=== PATIENT | female | born 1945 | race Caucasian/White ===

== ENCOUNTER 2021-07-18 16:34 | Emergency (ER) | payer OTHER ==
[~2021-07-18] VITALS: Ht 162.6 cm; Wt 63.5 kg
[2021-07-18 16:35] VITALS: BP 195/78
--- NOTE | 2021-07-18 16:41 | NUR ---
[facility]
--- NOTE | 2021-07-18 16:42 | NUR ---
DAYANNA ALEXANDER, VIA GURNEY TO BED 02.
[2021-07-18] MEDS ORDERED: ACETAMINOPHEN EXTRA STRENGTH 500 MG TAB PO ONE (16:45)
--- NOTE | 2021-07-18 16:47 | NUR ---
LAB AT BEDSIDE
--- NOTE | 2021-07-18 16:58 | NUR ---
PT TAKEN TO CT SCAN VIA W/C
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
[2021-07-18 17:03] LABS: BASOPHILS % (AUTO) 0.5 % (0.0-2.0); EOSINOPHILS # (AUTO) 0.1 K/uL (0-0.4); EOSINOPHILS % (AUTO) 1.6 % (0.0-4.0); HEMOGLOBIN 12.5 g/dL (12.0-16.0); LYMPHOCYTES # (AUTO) 2.1 K/uL (2.5-16.5); LYMPHOCYTES % (AUTO) 30.3 % (20.5-51.1); MEAN CORPUSCULAR HEMOGLOBIN 31 pg (27-31); MEAN CORPUSCULAR HGB CONC 34 g/dL (33-37); MEAN CORPUSCULAR VOLUME 90.5 fL (80-94); MONOCYTES # (AUTO) 0.6 K/uL (0.8-1.0); MONOCYTES % (AUTO) 9.5 % (1.7-9.3); NEUTROPHILS # (AUTO) 3.9 K/uL (1.8-7.7); NEUTROPHILS % (AUTO) 58.1 % (42.2-75.2); PLATELET COUNT (AUTO) 297 K/uL (140-450); RED BLOOD CELL COUNT(AUTO) 4.09 MIL/uL (4.20-5.40); RED CELL DISTRIBUTION WIDTH 16.2 % (11.6-13.7); WHITE BLOOD COUNT (AUTO) 6.8 K/uL (4.8-10.8)
--- NOTE | 2021-07-18 17:07 | NUR ---
PT RETURNED FROM CT SCAN
[2021-07-18 17:23] LABS: ALBUMIN 4.2 g/dL (3.4-5.0); ANION GAP 13.8 (8-16); ASPARTATE AMINOTRANSFERASE 36 U/L (15-37); CARBON DIOXIDE 27.6 mmol/L (21-32); CHLORIDE 99 mmol/L (98-107); CREATININE 0.8 mg/dL (0.6-1.3); GLUCOSE 136 mg/dL (74-106); POTASSIUM 3.4 mmol/L (3.5-5.1); SODIUM SERUM 137 mmol/L (136-145); TOTAL BILIRUBIN 0.5 mg/dL (0.0-1.0); UREA NITROGEN, BLOOD 17 mg/dL (7-18)
--- NOTE | 2021-07-18 17:57 | NUR ---
PT AMBULATED TO RESTROOM, WITH ASSIST.
--- NOTE | 2021-07-18 18:01 | NUR ---
PT'S AT BEDSIDE
[2021-07-18] MEDS ORDERED: ACET-10509 PO (18:19)
[2021-07-18] MEDS ORDERED: IBUP-1842 PO (18:19)
[2021-07-18] MEDS ORDERED: IBUPROFEN 600 MG TAB PO ONE (18:20)
[2021-07-18 18:57] VITALS: BP 195/78
--- NOTE | 2021-07-18 18:57 | NUR ---
Patient discharged with v/s stable. Written and verbal after care instructions given. Patient alert, oriented and verbalized understanding of instructions. Ambulatory with steady gait. All questions addressed prior to discharge. ID band removed. Patient advised to follow up with PMD. Rx of TYLENOL EXTRA STRENGTH TAB AND IBUPROFEN given. Opportunity to ask questions provided and answered.
== END 2021-07-18 18:57 | disposition home or self-care (01) ==
LOC: MED 16:34
DX: S01.01XA Laceration without foreign body of scalp, initial encounter (principal); M54.2 Cervicalgia; E11.9 Type 2 diabetes mellitus without complications; I10 Essential (primary) hypertension; E78.5 Hyperlipidemia, unspecified; Z79.1 Long term (current) use of non-steroidal anti-inflammatories (NSAID); Z79.899 Other long term (current) drug therapy; W10.8XXA Fall (on) (from) other stairs and steps, initial encounter; Y93.01 Activity, walking, marching and hiking; Y92.89 Other specified places as the place of occurrence of the external cause; Y99.8 Other external cause status
CPT/HCPCS: 12001; 36415; 70450; 72125; 80053; 81002; 85025; 93005; 99285

== ENCOUNTER 2022-01-10 11:13 | Emergency (ER) | payer OTHER ==
[~2022-01-10] VITALS: Ht 162.6 cm; Wt 63.3 kg
[~2022-01-10 11:13] MED LIST: ACET-10509 PO; IBUP-1842 PO
--- NOTE | 2022-01-10 11:13 | NUR ---
PT TO [facility]
[2022-01-10 11:53] VITALS: BP 190/77
[2022-01-10] MEDS ORDERED: HYDROcodone/APAP 7.5/325 MG 1 TAB PO ONE (12:35)
[2022-01-10] MEDS ORDERED: IBUPROFEN 600 MG TAB PO ONE (12:40)
--- NOTE | 2022-01-10 13:00 | NUR ---
PATIENT ELOPED FROM FACILITY. DISCHARGE INSTRUCTIONS NOT GIVEN TO PATIENT. DR. PEOPLES NOTIFIED.
== END 2022-01-10 13:00 | disposition left against medical advice (07) ==
LOC: MED 11:13
DX: B02.9 Zoster without complications (principal); E11.9 Type 2 diabetes mellitus without complications; I10 Essential (primary) hypertension; Z79.899 Other long term (current) drug therapy; Z98.890 Other specified postprocedural states
CPT/HCPCS: 99281

== ENCOUNTER 2022-10-17 17:00 | Emergency (ER) | payer OTHER ==
[~2022-10-17] VITALS: Ht 162.6 cm; Wt 74.8 kg
[2022-10-17 17:03] VITALS: BP 162/84; PULSE 88; RESP 18; TEMP 97.8; O2SAT 98
--- NOTE | 2022-10-17 17:41 | NUR ---
PT IN XRAY
[2022-10-17 18:18] VITALS: O2SAT 98
--- NOTE | 2022-10-17 18:18 | NUR ---
77 YO F C/O COUGH X 3 DAYS. SAFETY MAINTAINED. HX: HTN, DM
[2022-10-17] MEDS ORDERED: NIRM1TAB5 PO (18:35)
[2022-10-17] MEDS ORDERED: PROM118S5 PO (18:36)
[2022-10-17] MEDS ORDERED: BENZ100C6 PO (18:36)
[2022-10-17] MEDS ORDERED: MUC600 PO (18:38)
--- NOTE | 2022-10-17 18:54 | NUR ---
Patient discharged with v/s stable. Written and verbal after care instructions given and explained. Patient alert, oriented and verbalized understanding of instructions. Ambulatory with steady gait. All questions addressed prior to discharge. ID band removed. Patient advised to follow up with PMD. Rx of BFENZONATATE, GUAIFENESIN, NIRMATRELVIR, PROMETHAZINE given. Opportunity to ask questions provided and answered.
== END 2022-10-17 18:54 | disposition home or self-care (01) ==
LOC: MED 17:00
DX: U07.1 COVID-19 (principal); E11.9 Type 2 diabetes mellitus without complications; I10 Essential (primary) hypertension; Z79.4 Long term (current) use of insulin; Z79.899 Other long term (current) drug therapy
CPT/HCPCS: 71046; 99284